=== PATIENT | female | born 1940 | race Two or more races ===

== ENCOUNTER 2023-11-23 07:19 | Day surgery (SDC) | payer OTHER ==
[~2023-11-23] VITALS: Ht 154.9 cm; Wt 80.3 kg
[2023-11-23] VITALS (9 sets, daily range): BP systolic 104–137; BP diastolic 40–67; PULSE 48–62; RESP 14–21; TEMP 98.1; O2SAT 93–97
[~2023-11-23 07:19] MED LIST: ATOR40TA52 PO; CLOP75TA28 PO; HYDR25TA5 PO; LOSA-533 PO; METO25TA5 PO; OMEP20TA PO
[2023-11-23] MEDS ORDERED: SODIUM CHL 0.9% 0 ML ONE (08:56)
[2023-11-23] MEDS ORDERED: VERAPAMIL 2.5MG/ML INJ 2ML VIAL IV ONE (08:56)
[2023-11-23] MEDS ORDERED: ANGIOMAX 250 MG VIAL IV ONE (08:56)
[2023-11-23] MEDS ORDERED: fentaNYL CITRATE 100 MCG/2 ML VL ONE (08:56)
[2023-11-23] MEDS ORDERED: MIDAZOLAM HCL 2MG/2ML 2ml VIAL (1mg/ml) ONE (08:56)
[2023-11-23] MEDS ORDERED: HEPARIN SODIUM (PORCINE) 5000 UNITS/ML 1ML VIAL ONE (08:56)
[2023-11-23] MEDS ORDERED: IODIXANOL 320MG/ML 100ML BTL IV ONE (08:57)
[2023-11-23] MEDS ORDERED: LIDOCAINE 2%HCL (LOCAL ANESTH.) INJ 20ML MDV ONE (08:57)
== END 2023-11-23 11:55 | disposition home or self-care (01) ==
LOC: CATH 07:19
PROVIDERS: ATTEND Internal Medicine
DX: I25.119 Atherosclerotic heart disease of native coronary artery with unspecified angina pectoris (principal); R94.39 Abnormal result of other cardiovascular function study; F17.210 Nicotine dependence, cigarettes, uncomplicated; Z79.01 Long term (current) use of anticoagulants; Z88.0 Allergy status to penicillin; Z88.1 Allergy status to other antibiotic agents; Z88.8 Allergy status to other drugs, medicaments and biological substances; Z79.899 Other long term (current) drug therapy; Z98.890 Other specified postprocedural states
CPT/HCPCS: 93458; C1894; J1644; J2250; J3010; J7040; Q9967; 99152